=== PATIENT | male | born 1960 | race Asian ===

== ENCOUNTER → 2018-03-03 | Outpatient (CLI) | payer BC ==
--- NOTE | 2018-03-03 16:50 | Diagnostic Imaging Report ---
EXAMINATION: MRI of the lumbar spine without contrast HISTORY: Low back pain for the last month after heavy lifting COMPARISON: None. TECHNIQUE: Sagittal T1, T2, STIR; axial T2 and proton density. FINDINGS: It is assumed that there are 5 lumbar vertebrae. Curvature/Alignment: Reversal of the lumbar lordosis centered at L1-L2. Vertebrae: Diffuse heterogeneous bone marrow signal intensity, which may be related to osteopenia. Minimal chronic anterior wedging of the L1 and L2 vertebral bodies, which results in above mentioned mild kyphosis. No acute fractures. Conus: Normal, terminating at L1 Cauda equina: Unremarkable. 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 Lower thoracic: Unremarkable. Paraspinal soft tissues: Unremarkable. Degenerative changes: L1-L2: Unremarkable. L2-L3: Minimal symmetric disc bulge without stenosis L3-L4: Mild symmetric disc bulge and facet arthrosis. No significant stenoses L4-L5: Mild symmetric disc bulge and facet arthrosis. Mild bilateral foraminal stenosis L5-S1: Symmetric folds and bilateral facet arthrosis. Moderate foraminal stenoses worse on the right. IMPRESSION: 1. No acute lumbar spine abnormalities. 2. Minimal chronic anterior wedging of the L1 vertebral body. 3. Mild degenerative spinal canal stenoses at L4-L5 and moderate at L5-S1. 4. Diffuse heterogeneous bone marrow signal intensity as detailed above. Signed by: Dr. Dominga Rain M.D. on 03/03/2018 4:46 PM
== END ==
LOC: MRI 15:27
PROVIDERS: ATTEND Physical Medicine & Rehabilitation Pain Medicine
DX: M47.27 Other spondylosis with radiculopathy, lumbosacral region (principal)
CPT/HCPCS: 72148